=== PATIENT | female | born 1970 | race American Indian/Alaskan Native ===

== ENCOUNTER 2019-03-28 22:45 | Emergency (ER) | payer SELFPAY ==
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
[2019-03-29 00:39] VITALS: BP 136/85
== END 2019-03-29 00:38 | disposition home or self-care (01) ==
LOC: ED 22:45
DX: S01.81XA Laceration without foreign body of other part of head, initial encounter (principal); X58.XXXA Exposure to other specified factors, initial encounter; Y93.89 Activity, other specified; Y92.89 Other specified places as the place of occurrence of the external cause; Y99.8 Other external cause status